=== PATIENT | female | born 1985 | race Caucasian/White ===

== ENCOUNTER 2021-08-05 09:54 | Emergency (ER) | payer OTHER ==
[~2021-08-05] VITALS: Ht 172.7 cm; Wt 136.1 kg
[2021-08-05 11:54] VITALS: BP 144/89
== END 2021-08-05 11:54 | disposition home or self-care (01) ==
LOC: ER 09:54
DX: N64.4 Mastodynia (principal); K50.90 Crohn's disease, unspecified, without complications

== ENCOUNTER → 2021-08-11 | Outpatient (CLI) | payer OTHER | LOC: BC 09:09 | PROVIDERS: ATTEND Internal Medicine | DX: Z12.31 Encounter for screening mammogram for malignant neoplasm of breast (principal); N64.89 Other specified disorders of breast ==